=== PATIENT | male | born 1960 | race Caucasian/White ===

== ENCOUNTER 2016-08-31 13:02 | Emergency (ER) | payer OTHER ==
[~2016-08-31] VITALS: Ht 190.5 cm; Wt 104.1 kg
[~2016-08-31 13:02] MED LIST: ASPIR-LOW81 MG PO; CRESTOR40 MG PO; DAILY VITE1 EAC1 PO; DICLOFENAC SOD100 G1 TP; EFFIENT10 MG PO; LIPITOR40 MG PO; LISINOPRIL5 MG PO; LO-DOSE ASPIRIN81 M2 PO; METOPROLOL SUCC50 MG PO; NITROSTAT0.4 MG SL; PANTOPRAZOLE SO40 MG PO
[2016-08-31 13:35] LABS: HEMATOCRIT 46.9 % (38.0-50.0); MCH 28.4 PG (29.0-34.0); MCHC 32.4 G/DL (30.0-36.0); MCV 87.7 FL (86-99); MEAN PLAT.VOLUME 11.1 uM^3 (9.0-12.4); PLATELET COUNT 247 K/uL (156-360); RBC DIS.WIDTH-CV 12.1 % (11.8-14.6); RBC DIS.WIDTH-SD 38.6 % (39-53); RED BLOOD COUNT 5.35 M/uL (4.00-5.50); WHITE BLOOD COUNT 7.1 K/uL (4.1-10.2)
[2016-08-31 13:48] LABS: CHLORIDE 105 mEq/L (99-109); POTASSIUM 3.9 mEq/L (3.7-5.4); SODIUM 141 mEq/L (136-147)
[2016-08-31 13:50] LABS: GLUCOSE 109 mg/dL (70-99)
[2016-08-31 13:51] LABS: ANION GAP 12 MEQ/L (2-14)
[2016-08-31 13:54] LABS: GFR ESTIMATE (CALCULATED) > 59 mL/min/; UREA NITROGEN (BUN) 18 mg/dL (9-23)
[2016-08-31 13:59] LABS: TROP-I INTERPRETATION NEGATIVE; TROPONIN-I < 0.01 ng/mL (0.0-0.30)
[2016-08-31 16:14] LABS: TROP-I INTERPRETATION NEGATIVE; TROPONIN-I < 0.01 ng/mL (0.0-0.30)
[2016-08-31] MEDS ORDERED: PROTONIX40 MG PO (17:05)
[2016-08-31 18:16] VITALS: BP 135/76
== END 2016-08-31 18:17 | disposition home or self-care (01) ==
LOC: EME 13:02
PROVIDERS: Nurse Practitioner Family
DX: R07.89 Other chest pain (principal); K21.9 Gastro-esophageal reflux disease without esophagitis; Z95.5 Presence of coronary angioplasty implant and graft; R00.1 Bradycardia, unspecified; I25.2 Old myocardial infarction; I25.10 Atherosclerotic heart disease of native coronary artery without angina pectoris; I10 Essential (primary) hypertension; E78.5 Hyperlipidemia, unspecified; Z79.82 Long term (current) use of aspirin; Z87.891 Personal history of nicotine dependence
CPT/HCPCS: 71020; 80048; 84484; 85027; 93005; 99281; 99284

== ENCOUNTER 2017-03-08 16:23 | Observation (INO) | payer OTHER ==
[~2017-03-08] VITALS: Ht 188 cm; Wt 99.0 kg
[~2017-03-08 16:23] MED LIST changes: +PROTONIX40 MG PO; +TOPROL XL25 MG PO
[2017-03-08 17:10] LABS: HEMATOCRIT 45.2 % (38.0-50.0); MCH 28.3 PG (29.0-34.0); MCV 85.9 FL (86-99); MEAN PLAT.VOLUME 10.8 uM^3 (9.0-12.4); PLATELET COUNT 228 K/uL (156-360); RBC DIS.WIDTH-CV 12.9 % (11.8-14.6); RBC DIS.WIDTH-SD 40.4 % (39-53); RED BLOOD COUNT 5.26 M/uL (4.00-5.50); WHITE BLOOD COUNT 5.7 K/uL (4.1-10.2)
[2017-03-08 17:33] LABS: ANION GAP 7 MEQ/L (2-14); CHLORIDE 104 MEQ/L (99-109); POTASSIUM 4.1 MEQ/L (3.7-5.4); SAMPLE HEMOLYSIS CHECK 0; SAMPLE ICTERIC CHECK 0; SAMPLE LIPEMIA CHECK 0; SODIUM 139 MEQ/L (136-147)
[2017-03-08 17:38] LABS: GFR ESTIMATE (CALCULATED) > 59 mL/min/; GLUCOSE 87 mg/dL (70-99); UREA NITROGEN (BUN) 18 mg/dL (9-23)
[2017-03-08 17:42] LABS: TROP-I INTERPRETATION NEGATIVE; TROPONIN-I < 0.01 ng/mL (0.0-0.30)
[2017-03-08] MEDS ORDERED: TRAMADOL HCL50 MG PO (20:29)
[2017-03-08 21:17] LABS: DIRECT BILIRUBIN 0.1 mg/dL (0.0-0.3); TOTAL BILIRUBIN 0.6 MG/DL (0.0-1.0)
[2017-03-08 21:22] LABS: ALKALINE PHOSPHATASE 51 IU/L (3-129); LIPASE 28 U/L (1.0-51.0)
[2017-03-08 21:26] VITALS: BP 128/80
[2017-03-08 23:59] LABS: TROP-I INTERPRETATION NEGATIVE; TROPONIN-I < 0.01 ng/mL (0.0-0.30)
[2017-03-09 00:04] VITALS: BP 111/57
[2017-03-09 03:39] VITALS: BP 116/56
[2017-03-09 05:51] LABS: TROP-I INTERPRETATION NEGATIVE; TROPONIN-I 0.01 ng/mL (0.0-0.30)
[2017-03-09 09:27] VITALS: BP 123/68
== END 2017-03-09 11:02 | disposition home or self-care (01) ==
LOC: EME 16:23 → EDOF 20:32 → ENRESERV 20:36 → 5WEST 21:06
PROVIDERS: Hospitalist
DX: R07.9 Chest pain, unspecified (principal); I10 Essential (primary) hypertension; E78.5 Hyperlipidemia, unspecified; I25.10 Atherosclerotic heart disease of native coronary artery without angina pectoris; I25.2 Old myocardial infarction; Z95.5 Presence of coronary angioplasty implant and graft; G89.29 Other chronic pain; M51.36 Other intervertebral disc degeneration, lumbar region; R00.1 Bradycardia, unspecified; Z82.3 Family history of stroke; Z88.0 Allergy status to penicillin; Z87.891 Personal history of nicotine dependence; Z79.82 Long term (current) use of aspirin
CPT/HCPCS: 71020; 80048; 80076; 83690; 84484; 85027; 93005; 99281; 99285; G0378